=== PATIENT | male | born 1965 | race Caucasian/White ===

== ENCOUNTER 2017-03-03 14:02 | Emergency (ER) | payer OTHER ==
[2017-03-03] MEDS ORDERED: HYDROMORPHONE HCL 1MG/ML **SYRINGE IVP ONE ×2 (14:15→15:17)
[2017-03-03] MEDS ORDERED: DIAZEPAM 5 MG/1 ML TUBX IVP ONE (14:15)
[2017-03-03] MEDS ORDERED: KETOROLAC 30 MG/ML VIAL IVP ONE (14:15)
--- NOTE | 2017-03-03 14:16 | Emergency Department Record ---
History of Present Illness - General Chief Complaint: Back Pain/Injury Stated Complaint: LOWER BACK PAIN Time Seen by Provider: 03/03/17 14:12 Source: Patient Mode of Arrival: Ambulatory Limitations: No limitations - History of Present Illness Initial Comments: 52 yo male presents with about 4 days of progressive lumbar back pain. The pain is on the left lower lumbar side. At times the pain radiates down the left leg. No specific recent injury. He has had similar pain at times in the past. No numbness, tingling or weakness. No fever or recent illness. The pain is very positional. No abdominal pain. No changes in bowel or bladder function. No history of prior back surgery. The radiating pain stops at the knee. The pain is very minimal if still then it spasms with any movement. MD Complaint: Back pain -: Days(s) Place: Home Radiation: Left leg Severity: Severe Quality: Aching, Sharp Consistency: Constant Improves With: Immobilization Worsens With: Movement Associated Symptoms: Other (Left lag pain) - Related Data Home Medications Medication Instructions Recorded Confirmed Last Taken Lisinopril 10 mg PO DAILY 03/03/17 03/03/17 03/03/17 Previous Rx's Medication Instructions Recorded Diazepam [Valium] 5 mg PO Q8H #20 tab 03/03/17 Hydrocodone/Acetaminophen [Temple 1 each PO Q6H #20 tablet 03/03/17 7.5-325 Tablet] Naproxen [Naprosyn] 500 mg PO Q12H #30 tablet 03/03/17 Allergies Allergy/AdvReac Type Severity Reaction Status Date / Time No Known Allergies Allergy Unverified 01/23/16 14:18 Review of Systems Constitutional: Denies: Chills, Fever, Malaise, Weakness Eyes: Denies: Eye discharge, Eye pain ENT: Denies: Congestion, Throat pain Respiratory: Denies: Cough Cardiovascular: Denies: Chest pain, Syncope Endocrine: Denies: Fatigue Gastrointestinal: Denies: Abdominal pain, Diarrhea, Nausea, Vomiting Genitourinary: Denies: Hematuria, Incontinence, Urgency Musculoskeletal: Reports: Back pain Skin: Denies: Bruising, Change in color, Rash Neurological: Denies: Abnormal gait, Confusion, Headache, Numbness, Tingling, Tremors, Vertigo, Weakness Psychiatric: Denies: Anxiety Hematological/Lymphatic: Denies: Blood Clots, Easy bleeding, Easy bruising, Swollen glands Physical Exam - General General Appearance: Alert, Oriented x3, Cooperative, No acute distress Limitations: No limitations - Head Head exam: Normal inspection - Eye Eye exam: Normal appearance, PERRL. negative: Conjunctival injection, Periorbital swelling - ENT ENT exam: Normal exam, Mucous membranes moist Ear exam: Normal external inspection Nasal Exam: Normal inspection - Neck Neck exam: Normal inspection, Full ROM. negative: Tenderness - Respiratory Respiratory exam: Normal lung sounds bilaterally. negative: Accessory muscle use, Respiratory distress, Rhonchi, Stridor, Wheezes - Cardiovascular Cardiovascular Exam: Regular rate, Normal rhythm, Normal heart sounds - GI/Abdominal GI/Abdominal exam: Soft. negative: Tenderness - Rectal Rectal exam: Deferred - exam: Deferred - Extremities Extremities exam: Normal inspection, Full ROM, Normal capillary refill. negative: Calf tenderness, Pedal edema, Tenderness - Back Back exam: Reports: Normal inspection, Muscle spasm, Paraspinal tenderness ( lower left lumbar), Tenderness. Denies: Full ROM, Rash noted, Vertebral tenderness (tender paraspinal) - Neurological Neurological exam: Alert, Normal gait, Oriented X3, Reflexes normal, Other (No foot drop). negative: Motor sensory deficit - Psychiatric Psychiatric exam: Normal affect, Normal mood - Skin Skin exam: Dry, Intact, Normal color, Warm Course - Reevaluation(s) Reevaluation #1: 03/03/17 15:21 The Lumbar XR's were read as negative per the radiologist 03/03/17 15:51 The patient reports continued pain radiating down the left leg with certain movements Repeat medications given. 03/03/17 15:57 Any mild movement causes the lumbar area to tighten and pain in the left leg Ofirmev and Norflex ordered 03/03/17 16:18 The patient is starting to get some relief We discussed continued observation vs DC. He prefers DC home at this time. We discussed home care and close follow up if not improved. 03/03/17 16:20 No acute changes in CBC At DC the patent was ambulatory greatly improved Medical Decision Making - Lab Data Result diagrams: 03/03/17 14:20 03/03/17 14:20 Disposition Disposition: Discharge Clinical Impression: Lumbar back pain Disposition: Home, Self-Care Condition: (1) Good Instructions: Low Back Strain (ED) Additional Instructions: Call your doctor for close follow up Return if worse, uncontrolled pain, any weakness or new concerns Prescriptions: Diazepam [Valium] 5 mg PO Q8H #20 tab Hydrocodone/Acetaminophen [Temple 7.5-325 Tablet] 1 each PO Q6H #20 tablet Naproxen [Naprosyn] 500 mg PO Q12H #30 tablet Forms: Patient Portal Access Time of Disposition: 16:19 Quality - Quality Measures Quality Measures: N/A - Blood Pressure Screening Does Patient Have Any of the Following: No Blood Pressure Classification: Hypertensive Reading Systolic Measurement: 157 Diastolic Measurement: 92 Screening for High Blood Pressure: < Pre-Hypertensive BP, F/U Documented > [ [id number]] Pre-Hypertensive Follow-up Interventions: Referral to alternative/primary care provider.
[2017-03-03] MEDS ORDERED: METHYLPREDNISOLONE PF 125MG/VIAL IVP ONE (14:17)
[2017-03-03] MEDS ORDERED: 0.9 % SODIUM CHLORIDE 1,000 ML BAG IV ONE (15:51)
[2017-03-03] MEDS ORDERED: ACETAMINOPHEN 1,000 MG/100 ML BTL IVPB ONE (15:56)
[2017-03-03] MEDS ORDERED: ORPHENADRINE CITRATE 60MG/2ML VIAL IM ONE (15:57)
[2017-03-03 16:03] LABS: BASO % 0.5 % (0-6); EOS % 4.1 % (0-6); GRAN % 68.1 % (47-80); HEMATOCRIT 48.4 % (42.0-52.0); HEMOGLOBIN 16.6 gm/dl (14.0-18.0); LYMPH % 14.7 % (16-45); MEAN CELL VOLUME 93.4 fl (81-97); MEAN CORPUSCULAR HGB CONC 34.3 g/dl (32-36); MEAN PLATELET VOLUME 10.5 fl (7.4-10.4); MONO % 12.6 % (0-9); PLATELET COUNT 190 K/uL (130-400); RED BLOOD COUNT 5.18 M/uL (4.40-5.70); RED CELL DISTRIBUTION WIDTH 13.9 % (11.5-14.5); WHITE BLOOD COUNT W/O DIFF 10.5 K/uL (4.2-12.2)
[2017-03-03 16:17] LABS: BLOOD UREA NITROGEN 22 mg/dL (6-20); CREATININE 1.3 mg/dL (0.7-1.2); EST GLOMERULAR FILTRATION RATE > 60 mL/min
[2017-03-03] MEDS ORDERED: HYDROCODONE/APAP 7.5/325MG TABLET PO ONE (16:17)
[2017-03-03] MEDS ORDERED: DIAZEPAM 5 MG TABLET PO ONE (16:17)
[2017-03-03 16:20] LABS: GLUCOSE,RANDOM 91 mg/dL (74-109)
--- NOTE | 2017-03-04 07:59 | RADIOLOGY REPORT ---
EXAM: LUMBAR SPINE HISTORY: BACK PAIN. TECHNIQUE: AP, lateral and oblique views of the lumbar spine were performed. FINDINGS: There is normal height and alignment. No disk space narrowing. No spondylolysis or spondylolisthesis. IMPRESSION: NEGATIVE LUMBAR SPINE EXAMINATION. JOB NUMBER: [id number] MTDD
== END 2017-03-03 16:48 | disposition home or self-care (01) ==
LOC: ER 14:02
DX: M54.5 Low back pain (principal); M79.652 Pain in left thigh; I10 Essential (primary) hypertension
CPT/HCPCS: 99284 ×2; 96376; 96374; 96372; 96375; 85025; 80048; 72110; J3490; J1885; J1170; J2360; J2930; J3360; J7030

== ENCOUNTER 2017-12-10 08:42 | Emergency (ER) | payer SELFPAY ==
[2017-12-10] MEDS ORDERED: DIAZEPAM 5MG/ML **10ML VIAL IVP ONE ×2 (08:53→10:03)
[2017-12-10] MEDS ORDERED: KETOROLAC 30 MG/ML VIAL IVP ONE (08:54)
--- NOTE | 2017-12-10 09:00 | Emergency Department Record ---
History of Present Illness - General Chief Complaint: Back Pain/Injury Stated Complaint: Back pain Time Seen by Provider: 12/10/17 08:53 Source: Patient Mode of Arrival: Ambulatory Limitations: No limitations - History of Present Illness Initial Comments: Pt with reported history of lumbar disk disease with MRI at [facility]. Has daily pain that is sharp with rradiation to the medial upper left thigh. Pain is at times better if he walks and "warms up". 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 No Bowel or bladder dysfunction. No weakness or giving out of leg. Taking Naprosyn and Norflex at home without relief. MD Complaint: Back pain Similar Symptoms Previously: Yes Severity: Severe Severity scale (1-10): 10 Quality: Sharp Consistency: Intermittent Improves With: None Worsens With: None Associated Symptoms: Denies other symptoms Treatments Prior to Arrival: NSAIDS, Other medications (Norflex) - Related Data Previous Rx's Medication Instructions Recorded Diazepam [Valium] 5 mg PO Q8H PRN 4 Days #12 tab 12/10/17 Allergies Allergy/AdvReac Type Severity Reaction Status Date / Time No Known Allergies Allergy . Verified 12/10/17 08:49 Travel Screening - Travel/Exposure Within Last 30 Days Have you traveled within the last 30 days?: No Review of Systems Constitutional: Denies: Chills, Fever Eyes: Denies: Photophobia ENT: Denies: Congestion Respiratory: Denies: Cough, Dyspnea Cardiovascular: Denies: Arrhythmia, Chest pain Endocrine: Denies: Fatigue Gastrointestinal: Denies: Abdominal pain, Constipation Genitourinary: Denies: Dysuria Musculoskeletal: Reports: As per HPI, Back pain Skin: Denies: Bruising, Rash Neurological: Reports: As per HPI. Denies: Weakness Psychiatric: Denies: Anxiety Hematological/Lymphatic: Denies: Anemia Past Medical History - SOCIAL HISTORY Smoking Status: Current every day smoker Alcohol Use: None Drug Use: None - RESPIRATORY Hx Respiratory Disorders: Yes Hx Sleep Apnea: Yes Hx of CPAP: Yes - CARDIOVASCULAR Hx Cardio Disorders: Yes Hx Hypertension: Yes - NEURO Hx Neuro Disorders: No - GI Hx GI Disorders: No - Hx Genitourinary Disorders: Yes Hx Prostate Problems: Yes - ENDOCRINE Hx Endocrine Disorders: No - MUSCULOSKELETAL Hx Musculoskeletal Disorders: Yes - PSYCH Hx Psych Problems: Yes Hx Anxiety: Yes - HEMATOLOGY/ONCOLOGY Hx Hematology/Oncology Disorders: No Family Medical History Any Significant Family History?: Yes Hx Cancer: Mother Hx Dementia: Mother Hx HTN: Father Hx Stroke: Father Physical Exam - General General Appearance: Alert, Oriented x3, Cooperative, Moderate distress Limitations: No limitations - Head Head exam: Atraumatic - Eye Eye exam: Normal appearance, PERRL - ENT ENT exam: Mucous membranes moist, Normal external ear exam, Normal orophraynx - Neck Neck exam: Normal inspection, Full ROM. negative: Tenderness - Respiratory Respiratory exam: Normal lung sounds bilaterally. negative: Rhonchi, Wheezes - Cardiovascular Cardiovascular Exam: Regular rate, Normal rhythm, Normal heart sounds Peripheral Pulses: 2+: Dorsalis Pedis (R), Dorsalis Pedis (L) - GI/Abdominal GI/Abdominal exam: Soft, Normal bowel sounds. negative: Guarding, Tenderness - Rectal Rectal exam: Deferred - Extremities Extremities exam: Normal inspection, Full ROM. negative: Calf tenderness - Back Back exam: Reports: Paraspinal tenderness, Tenderness, Vertebral tenderness. Denies: CVA tenderness (R), CVA tenderness (L) - Neurological Neurological exam: Abnormal gait (Shuffling gait due to pain. Good strength to great toe plantar and dorsi flexion. ), Alert, Oriented X3 - Psychiatric Psychiatric exam: Normal affect - Skin Skin exam: Normal color Course Vital Signs 12/10/17 08:46 Temperature 98.3 F Pulse Rate 104 H Respiratory 18 Rate Blood Pressure 137/95 Pulse Ox 97 - Reevaluation(s) Reevaluation #1: 12/10/17 09:42 Pt states "Toradol doesn't work for me". Dose of Fentanyl ordered. Resting quiet with TV. Reevaluation #2: 12/10/17 09:43 Discussed with patient the need to NOT take Naprosyn while taking the Decadron as there is risk of GI bleed. Also discussed the need for close family doctor follow up and evaluation by neurosurgery for further recommendations. Reevaluation #3: 12/10/17 10:04 Pt with pain. Given Vailum 5mg additional dose. Disposition Disposition: Discharge Clinical Impression: Lumbar radiculopathy, acute, Muscle spasm of back Disposition: Home, Self-Care Condition: (2) Stable Instructions: Low Back Strain (ED) Additional Instructions: Decadron script for home: Decadron 2mg tabs (#14) taper dose: Day 1 - 2 tabs po Q6 hrs with food Day 2 - 1 tab po Q6 hrs with food Day 3 - 1 tab po Q12 hrs with food. DO NOT take Naprosyn with steroids (Decadron) or alcohol. Valium at night time for muscle relaxation as prescribed. Follow up with Dr. Herrera neurosurgery - call for appointment. Prescriptions: Diazepam [Valium] 5 mg PO Q8H PRN 4 Days #12 tab PRN Reason: Muscle Spasms Forms: Patient Portal Access Quality - Quality Measures Quality Measures: N/A - Blood Pressure Screening Does Patient Have Any of the Following: No Blood Pressure Classification: Hypertensive Reading Systolic Measurement: 137 Diastolic Measurement: 95 Screening for High Blood Pressure: Patient Exclusion, Hx of HTN [G9744]
[2017-12-10] MEDS ORDERED: DEXAMETHASONE 4 MG/ML 1ML VIAL PO ONE (09:08)
[2017-12-10] MEDS ORDERED: FENTANYL PF 100MCG/2ML VIAL IVP ONE (09:24)
== END 2017-12-10 10:59 | disposition home or self-care (01) ==
LOC: ER 08:42
DX: M51.16 Intervertebral disc disorders with radiculopathy, lumbar region (principal); M62.830 Muscle spasm of back; I10 Essential (primary) hypertension; F17.210 Nicotine dependence, cigarettes, uncomplicated
CPT/HCPCS: 99284 ×2; 96376; 96374; 96375; J1885; J3010; J3360

== ENCOUNTER 2018-07-02 07:05 | Day surgery (SDC) | payer BC ==
[2018-07-02] MEDS ORDERED: LIDOCAINE 2% MDV (20MG/ML) 20ML VIAL IV ONE (07:06)
[2018-07-02] MEDS ORDERED: LIDOCAINE 1% W/EPI 1:200,000 MPF 30ML SQ ONE (07:06)
[2018-07-02] MEDS ORDERED: HYDROCODONE/APAP 7.5/325MG TABLET PO ONE (07:06)
[2018-07-02] MEDS ORDERED: DEXAMETHASONE PRESERVATIVE FREE 10MG/ML VIAL IV ONE (07:06)
[2018-07-02] MEDS ORDERED: BUPIVACAINE 0.5% W/EPI MPF 30 ML VIAL IVP ONE (07:06)
[2018-07-02] MEDS ORDERED: BUPIVACAINE 0.5% (5MG/ML) PF 30ML VIAL IVP ONE (07:06)
[2018-07-02] MEDS ORDERED: PROPOFOL 10 MG/ML VIAL IV ONE (07:06)
[2018-07-02] MEDS ORDERED: MIDAZOLAM HCL 2MG/2ML VIAL IV ONE (07:06)
[2018-07-02] MEDS ORDERED: FENTANYL PF 100MCG/2ML VIAL IV ONE (07:06)
--- NOTE | 2018-07-04 13:06 | Operative Note ---
DATE OF PROCEDURE: 07/02/2018. SURGEON: Pipe Kennedy D.O. PRIMARY CARE PHYSICIAN: Yo Mcbride D.O. 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 POSTOPERATIVE DIAGNOSIS: LEFT LUMBAR SPONDYLOSIS WITHOUT MYELOPATHY, ICD10 CODE M47.816. PROCEDURE: Fluoroscopically guided infiltration block left lumbar facets 2-3, 3-4, 4-5, and 5-1. INDICATIONS: This patient presents with pain which is left-sided low back and hip. Examination shows tenderness in the lumbar spine. Range of motion does cause pain in the back with extension. Diagnostic imaging shows multi-level spondylosis with disc abnormalities. The primary pain is in the back. DESCRIPTION OF PROCEDURE: Intravenous line, vital sign monitoring, and intravenous sedation. Prepped and draped with sterile technique. Under imaging , the facet levels in the lumbar spine in the area of pain were identified and marked at 2-3, 3-4, 4-5, and 5-1 on the left. Each one of these points on the skin was infiltrated. A 22-gauge, 3.5-inch needle was placed into the facet, and 1.0 mL of 0.5% Marcaine and dexamethasone was injected. This was repeated at each of the sites on the left. The areas were cleaned, and topical antibiotic and sterile dressing were applied. We will monitor and evaluate. JOB NUMBER: [id number] cc: Yo Mcbride D.O. MTDD
== END 2018-07-02 09:40 | disposition home or self-care (01) ==
LOC: SUR 07:05
PROVIDERS: ATTEND Pain Medicine Interventional Pain Medicine
DX: M47.816 Spondylosis without myelopathy or radiculopathy, lumbar region (principal); I10 Essential (primary) hypertension
CPT/HCPCS: 01992; 64493; 64494; 64495; J1100; J3010

== ENCOUNTER 2018-10-15 05:42 | Day surgery (SDC) | payer BC ==
[2018-10-15] MEDS ORDERED: FENTANYL PF 100MCG/2ML VIAL IV ONE (05:43)
[2018-10-15] MEDS ORDERED: PROPOFOL 10 MG/ML VIAL IV ONE (05:43)
[2018-10-15] MEDS ORDERED: LIDOCAINE 2% MDV (20MG/ML) 20ML VIAL IV ONE (05:43)
[2018-10-15] MEDS ORDERED: MIDAZOLAM HCL 2MG/2ML VIAL IV ONE (05:43)
[2018-10-15] MEDS ORDERED: RINGERS SOLUTION,LACTATED 1,000 ML IV ONE (06:21)
[2018-10-15] MEDS ORDERED: LIDOCAINE 1% W/EPI 1:200,000 MPF 30ML SQ ONE (07:21)
[2018-10-15] MEDS ORDERED: BUPIVACAINE 0.5% W/EPI MPF 30 ML VIAL SQ ONE (07:21)
[2018-10-15] MEDS ORDERED: BUPIVACAINE 0.5% (5MG/ML) PF 30ML VIAL SQ ONE (07:21)
[2018-10-15] MEDS ORDERED: DEXAMETHASONE PRESERVATIVE FREE 10MG/ML VIAL SQ ONE (07:21)
--- NOTE | 2018-10-17 09:00 | Operative Note ---
DATE OF SURGERY: 10/15/2018 PREOPERATIVE DIAGNOSIS: Lumbar spondylosis without myelopathy, ICD10 code M47.816. OPERATION: Fluoroscopic-guided infiltration of block left lumbar facets 3-4, 4- 5, 5-1. SURGEON: Pipe Kennedy, ANESTHESIA: Local with sedation. ANESTHESIA PROVIDER: Greg Etienne INDICATION: This patient presents with primary back pain left. Examination showed tenderness lumbar spine to the left. Range of motion causing pain to the left with extension. Diagnostics show multilevel spondylosis. PROCEDURE: Intravenous line, vital sign monitoring, IV sedation, prepped and draped in sterile technique. Under imaging, facets on the left at 3-4, 4-5, 5-1 were identified and marked. Skin infiltrated. A 22-gauge 3-1/2 inch needle into the facet, 1 mL of 0.5% Marcaine and dexamethasone injected, left only. Area cleaned. Topical antibiotic and sterile dressing applied. Will monitor and evaluate. MTDD
== END 2018-10-15 07:55 | disposition home or self-care (01) ==
LOC: SUR 05:42
PROVIDERS: ATTEND Pain Medicine Interventional Pain Medicine
DX: M47.816 Spondylosis without myelopathy or radiculopathy, lumbar region (principal); I10 Essential (primary) hypertension; E66.9 Obesity, unspecified; G47.33 Obstructive sleep apnea (adult) (pediatric)
CPT/HCPCS: 64493; 64494 ×2; 01992; J1100; J3010; J7120

== ENCOUNTER 2018-11-26 05:47 | Day surgery (SDC) | payer BC ==
[2018-11-26] MEDS ORDERED: FENTANYL PF 100MCG/2ML VIAL IV ONE (05:48)
[2018-11-26] MEDS ORDERED: MIDAZOLAM HCL 2MG/2ML VIAL IV ONE (05:48)
[2018-11-26] MEDS ORDERED: PROPOFOL 10 MG/ML VIAL IV ONE (05:48)
[2018-11-26] MEDS ORDERED: LIDOCAINE 2% MDV (20MG/ML) 20ML VIAL IV ONE (05:48)
[2018-11-26] MEDS: RINGERS SOLUTION,LACTATED 1,000 ML IV ONE (07:00)
[2018-11-26] MEDS: LIDOCAINE 1% W/EPI 1:100,000 MDV 20 ML VIAL SQ ONE (08:51)
[2018-11-26] MEDS: DEXAMETHASONE PRESERVATIVE FREE 10MG/ML VIAL SQ ONE (08:52)
[2018-11-26] MEDS: BUPIVACAINE 0.5% W/EPI MPF 30 ML VIAL SQ ONE (08:52)
--- NOTE | 2018-11-26 14:53 | Operative Note ---
DATE OF SURGERY: 11/26/2018 PREOPERATIVE DIAGNOSIS: Left lumbar spondylosis without myelopathy, ICD10 code M47.816. OPERATION: Radiofrequency rhizotomy of left lumbar facets 3-4, 4-5, 5-1. ANESTHESIA: Local with sedation. ANESTHESIA PROVIDER: Darron Martin INDICATIONS: This patient presents with pain which is left-sided low back and hip. Diagnostic studies show multiple level spondylosis. A facet series 75% relief. Due to the failure of therapy and success of facet series, patient presents for rhizotomy for more long-term relief. PROCEDURE: Intravenous line, vital sign monitoring, IV sedation, prepped and draped in sterile technique. Under imaging, facets left at 3-4, 4-5, 5-1 were marked, infiltrated with local. A 20-gauge rhizotomy cannula positioned. Stimulation trial was conducted. Rhizotomy burn performed. Local with antiinflammatory into the sites. Topical antibiotic and sterile dressing applied. Will monitor and evaluate. [facility]
== END 2018-11-26 09:35 | disposition home or self-care (01) ==
LOC: SUR 05:47
PROVIDERS: ATTEND Pain Medicine Interventional Pain Medicine
DX: M47.816 Spondylosis without myelopathy or radiculopathy, lumbar region (principal); I10 Essential (primary) hypertension; G47.33 Obstructive sleep apnea (adult) (pediatric)
CPT/HCPCS: J7120

== ENCOUNTER 2019-05-06 05:27 | Day surgery (SDC) | payer BC ==
[2019-05-06] MEDS ORDERED: FENTANYL PF 100MCG/2ML VIAL IV ONE (05:28)
[2019-05-06] MEDS ORDERED: LIDOCAINE 2% MDV (20MG/ML) 20ML VIAL IV ONE (05:28)
[2019-05-06] MEDS ORDERED: MIDAZOLAM HCL 2MG/2ML VIAL IV ONE (05:28)
[2019-05-06] MEDS ORDERED: PROPOFOL 10 MG/ML VIAL IV ONE (05:28)
[2019-05-06] MEDS ORDERED: RINGERS SOLUTION,LACTATED 1,000 ML IV ONE (05:52)
[2019-05-06] MEDS ORDERED: BUPIVACAINE 0.5% W/EPI MPF 30 ML VIAL SQ ONE (07:30)
[2019-05-06] MEDS ORDERED: BUPIVACAINE 0.25% PF (2.5MG/ML) 10ML VIAL IM ONE (07:30)
[2019-05-06] MEDS ORDERED: LIDOCAINE 1% W/EPI 1:200,000 MPF 30ML SQ ONE (07:30)
[2019-05-06] MEDS ORDERED: DEXAMETHASONE PRESERVATIVE FREE 10MG/ML VIAL SQ ONE (07:30)
[2019-05-06] MEDS ORDERED: HYDROCODONE/APAP 7.5/325MG TABLET PO ONE (07:48)
--- NOTE | 2019-05-06 08:15 | Operative Note - [place] ---
DATE OF SURGERY: 05/06/2019 PREOPERATIVE DIAGNOSIS: LUMBAR RADICULOPATHY, ICD-10 CODE M54.16 AND M54.17. OPERATION: FLUOROSCOPICALLY GUIDED BILATERAL LUMBAR EPIDURAL INJECTION L4-L5. SURGEON: Pipe Kennedy D.O. ANESTHESIA: Local sedation. ANESTHESIA PROVIDER: ANN MARIE Ortega CRNA INDICATION: This patient presents with pain which is low back, hip and leg. Diagnostics do show a L4-L5 disk abnormality and the pattern of pain is L4-L5. PROCEDURE: Intravenous line, vital sign monitoring, IV sedation, prepped and draped, sterile technique. Under imaging the lumbar epidural interspace at L4- L5 identified and marked bilaterally, skin infiltrated, two separate 17-gauge Tuohy needles, one left and one right of the midline loss of resistance technique, atraumatic. No blood. No CSF. Contrast epidurogram showing epidural flow characteristics appropriate for the space left and right. 5 ml of 0.125% Marcaine with Dexamethasone injected first left then right. Both needles removed, back cleaned, topical antibiotic, sterile dressing applied. Will monitor and evaluate. JOB NUMBER: [id number] MTDD
== END 2019-05-06 08:02 | disposition home or self-care (01) ==
LOC: SUR 05:27
PROVIDERS: ATTEND Pain Medicine Interventional Pain Medicine
DX: M54.16 Radiculopathy, lumbar region (principal); M54.17 Radiculopathy, lumbosacral region; I10 Essential (primary) hypertension; G47.33 Obstructive sleep apnea (adult) (pediatric)
CPT/HCPCS: 62323; 01992; J1100; J3010; J7120